=== PATIENT | female | born 1985 | race Hispanic/Latino ===

== ENCOUNTER 2018-07-06 09:52 | Emergency (ER) | payer OTHER ==
[2018-07-06 10:01] VITALS: BMI 17.0
--- NOTE | 2018-07-06 11:40 | ED PDOC ---
HPI: General Adult Time Seen by Provider: 07/06/18 10:26 Chief Complaint (Nursing): Dizziness/Lightheaded History Per: Patient Additional Complaint(s): Pt. states this morning she attempted to place her 18 m/o baby in the stroller and was unable to lift her up as she felt weak. States she woke up this morning feeling weak as well. This morning after attempting to lift up her daughter she began to feel faint she fell down striking the wall. Pt. states almost lost con sciousness but was able to feel herself breathing heavy and have numbness throughout her body but mainly on her fingertips and legs. 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 Pt. reports feeling tired and admits to not getting proper rest. Denies SI/HI, hallucinations, chest pain, fever, head injury, N/V. Of note, pt. states symptoms lasted for 20 minutes but has since improved and she no longer feels SOB or has numbness. Past Medical History Reviewed: Historical Data, Nursing Documentation, Vital Signs Vital Signs: Last Vital Signs Temp 98.5 F 07/06/18 10:01 Pulse 80 07/06/18 10:01 Resp 17 07/06/18 10:01 BP 104/67 07/06/18 10:01 Pulse Ox 99 07/06/18 10:01 - Medical History PMH: Denies: Chronic Kidney Disease - Family History Family History: States: No Known Family Hx - Immunization History Hx Tetanus Toxoid Vaccination: No Hx Influenza Vaccination: No Hx Pneumococcal Vaccination: No - Home Medications Home Medications: Ambulatory Orders Medication Instructions Recorded Metoclopramide HCl [Reglan] 10 mg PO QID PRN #20 tablet 07/10/16 - Allergies Allergies/Adverse Reactions: Allergies Allergy/AdvReac Type Severity Reaction Status Date / Time amoxicillin trihydrate Allergy RASH Verified 07/06/18 10:36 [From Augmentin] Penicillins Allergy RASH Verified 07/06/18 10:36 potassium clavulanate Allergy RASH Verified 07/06/18 10:36 [From Augmentin] Review of Systems ROS Statement: Except As Marked, All Systems Reviewed And Found Negative Psych: Positive for: Anxiety Physical Exam - Reviewed Nursing Documentation Reviewed: Yes Vital Signs Reviewed: Yes - Physical Exam Appears: Positive for: Well, Non-toxic, No Acute Distress Head Exam: Positive for: ATRAUMATIC, NORMAL INSPECTION, NORMOCEPHALIC Skin: Positive for: Normal Color, Warm. Negative for: Rash Eye Exam: Positive for: EOMI, Normal appearance, PERRL ENT: Positive for: Normal ENT Inspection Neck: Positive for: Normal, Painless ROM Cardiovascular/Chest: Positive for: Regular Rate, Rhythm Respiratory: Positive for: Normal Breath Sounds. Negative for: Respiratory Distress Gastrointestinal/Abdominal: Positive for: Normal Exam, Soft. Negative for: Tenderness Back: Positive for: Normal Inspection. Negative for: Vertebral Tenderness (including c-spine) Extremity: Positive for: Normal ROM Neurologic/Psych: Positive for: Alert, Oriented (x3), Mood/Affect (calm, cooperative, smiling), Gait (steady, unassisted). Negative for: Aphasia, Facial Droop - Laboratory Results Result Diagrams: 07/06/18 11:44 07/06/18 11:44 - ECG ECG: Positive for: Interpreted By Me ECG Rhythm: Positive for: Sinus Rhythm. Negative for: ST/T Changes Rate: 77 O2 Sat by Pulse Oximetry: 99 - Progress ED Course And Treament: Labs, IV NS bolus ordered. Pt. placed on surveillance monitor. CT head w/o contrast: negative. On re-evaluation, pt. reports feeling better. Repeat neuro exam is non-focal. Gait steady, unassisted. 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 Informed of results. Advised to f/u with PMD for further evaluation but is to return to ED immediately if symptoms worsen. Disposition - Clinical Impression Clinical Impression: Weakness, Pre-syncope - Patient ED Disposition Is Patient to be Admitted: No - Disposition Referrals: [facility] [Outside] Disposition: Routine/Home Disposition Time: 14:11 Condition: IMPROVED Additional Instructions: FOLLOW UP WITH YOUR DOCTOR FOR FURTHER EVALUATION RETURN TO ED IMMEDIATELY IF SYMPTOMS WORSEN JENNI RITCHIE, thank you for letting us take care of you today. Your provider was Darling Turner MD and you were treated for SOB. The emergency medical care you received today was directed at your acute symptoms. If you were prescribed any medication, please fill it and take as directed. It may take several days for your symptoms to resolve. Return to the Emergency Department if your symptoms worsen, do not improve, or if you have any other problems. Please contact your doctor or call one of the physicians/clinics you have been referred to that are listed on the Patient Visit Information form that is included in your discharge packet. Bring any paperwork you were given at discharge with you along with any medications you are taking to your follow up visit. Our treatment cannot replace ongoing medical care by a primary care provider outside of the emergency department. Thank you for allowing the [facility] team to be part of your care today. If you had an X-Ray or CT scan: A Radiologist will review the ED reading if any change in treatment is needed we will contact you. If you had a blood, urine, or wound culture: It will take several days for the results, if any change in treatment is needed we will contact you. If you had an STI test: It will take 48 hours for the results. Please call after 1 week if you have not heard back. Instructions: Fatigue (DC), Near Fainting (DC), Weakness (ED) Forms: [facility] ([place]), [facility] ED School/Work Excuse
--- NOTE | 2018-07-06 11:43 | CT ---
Date of service: 07/06/2018 PROCEDURE: CT HEAD WITHOUT CONTRAST. HISTORY: dizziness COMPARISON: None available. TECHNIQUE: Axial computed tomography images were obtained through the head/brain without intravenous contrast. Radiation dose: Total exam DLP = 644.06 mGy-cm. This CT exam was performed using one or more of the following dose reduction techniques: Automated exposure control, adjustment of the mA and/or kV according to patient size, and/or use of iterative reconstruction technique. FINDINGS: HEMORRHAGE: No intracranial hemorrhage. BRAIN: Normal oliveros-white matter differentiation and density are appreciated throughout the cerebrum and cerebellum with the brainstem appearing unremarkable as well. There is no mass effect. There is no suspicious extra-axial fluid collection and the midline brain anatomy appears diffusely unremarkable. VENTRICLES: Unremarkable. No hydrocephalus. CALVARIUM: No destructive bony lesion or displaced fracture identified including through the skullbase. PARANASAL SINUSES: Unremarkable as visualized. No significant inflammatory changes. MASTOID AIR CELLS: Unremarkable as visualized. No inflammatory changes. OTHER FINDINGS: None. IMPRESSION: Unremarkable unenhanced head CT.
[2018-07-06 11:53] LABS: SQUAMOUS EPITHIAL 1 /hpf (0-5); URINE BILIRUBIN NEGATIVE (NEGATIVE); URINE BLOOD NEGATIVE (NEGATIVE); URINE CLARITY CLEAR (Clear); URINE COLOR STRAW (YELLOW); URINE GLUCOSE (UA) NEG (NEGATIVE); URINE LEUKOCYTE ESTERASE NEG Leu/uL (Negative); URINE PROTEIN NEGATIVE (NEGATIVE); URINE UROBILINOGEN 0.2-1.0 mg/dL (0.2-1.0)
[2018-07-06 12:04] LABS: BASO % 0.7 % (0.0-2.0); EOS # 0.1 K/uL (0.0-0.7); EOS % 1.2 % (0.0-4.0); HEMOGLOBIN 13.3 g/dL (12.0-16.0); LYMPH # 1.4 K/uL (1.0-4.3); LYMPH % 32.7 % (20.0-40.0); MEAN CELL VOLUME 89.8 fl (81.0-99.0); MEAN CORPUSCULAR HGB CONC 33.4 g/dL (33.0-37.0); MEAN PLATELET VOLUME 7.7 fl (7.2-11.7); MONO # 0.4 K/uL (0.0-0.8); MONO % 8.5 % (0.0-10.0); NEUT # 2.5 K/uL (1.8-7.0); NEUT % 56.9 % (50.0-75.0); NRBC % 0.1 % (0.0-0.0); RBC 4.42 Mil/uL (3.80-5.20); RED CELL DISTRIBUTION WIDTH 12.9 % (11.5-14.5); WHITE BLOOD COUNT 4.4 K/uL (4.8-10.8)
[2018-07-06 12:11] LABS: BARBITURATES, UR NEGATIVE (NEGATIVE); BENZODIAZEPINES, UR NEGATIVE (NEGATIVE); OPIATES, UR NEGATIVE (NEGATIVE); PHENCYCLIDINE, UR NEGATIVE (NEGATIVE)
[2018-07-06 12:23] LABS: ALB/GLOB RATIO 1.3 (1.0-2.1); ALBUMIN 4.1 g/dL (3.5-5.0); ALT/SGPT 24 U/L (9-52); AST/SGOT 38 U/L (14-36); BLOOD UREA NITROGEN 12 mg/dl (7-17); CALCIUM 8.9 mg/dL (8.4-10.2); GFR NON-AFRICAN AMERICAN > 60
--- NOTE | 2018-07-06 13:46 | CARD ---
APPROVED REPORT Date of service: 07/06/2018 EKG Measurement Heart [id number] <Conclusion> Normal sinus rhythm Normal ECG
[2018-07-06 14:23] VITALS: RESP 18; TEMP 99
[2018-07-06 14:59] VITALS: BP 105/61
[2018-07-06 20:45] VITALS: PULSE 77; O2SAT 99
== END 2018-07-06 14:58 | disposition home or self-care (01) ==
LOC: H.ER 09:52
DX: R42 Dizziness and giddiness (principal); M62.81 Muscle weakness (generalized); Z88.0 Allergy status to penicillin
CPT/HCPCS: 70450; 80053; 80324; 80345; 80346; 80349; 80353; 80358; 80361; 81003; 81025; 82948; 83992; 84443; 84484; 85025; 93005; 96360; 99285; J7030